=== PATIENT | female | born 1990 | race African-American/Black ===

== ENCOUNTER 2016-05-31 19:53 | Outpatient (CLI) | payer MEDICAID ==
[~2016-05-31] VITALS: Ht 154.9 cm; Wt 98.6 kg
[2016-05-31 20:35] VITALS: BP 121/74
[2016-05-31 20:55] VITALS: BP 126/67
[2016-06-25] MEDS ORDERED: HYDR-3702 PO (08:45)
[2016-07-02] MEDS ORDERED: MAGN400T39 PO (13:26)
== END 2016-05-31 20:55 | disposition home or self-care (01) ==
LOC: OBGOP 19:53 → OB 19:54 → OBGOP 20:55
PROVIDERS: ATTEND Obstetrics & Gynecology
DX: O42.913 Preterm premature rupture of membranes, unspecified as to length of time between rupture and onset of labor, third trimester (principal); Z3A.35 35 weeks gestation of pregnancy
CPT/HCPCS: 84112; G0463; 99202

== ENCOUNTER 2016-06-15 01:47 | Outpatient (CLI) | payer MEDICAID ==
[~2016-06-15] VITALS: Ht 154.9 cm; Wt 98.6 kg
[2016-06-15 02:25] VITALS: BP 126/83
[2016-06-15 02:30] VITALS: BP 126/83
== END 2016-06-15 03:55 | disposition admitted as inpatient to this hospital (09) ==
LOC: OB 01:47 → EUOP 01:47 → UNDOADMIN 02:07 → OB 02:07 → EUOP 02:21
PROVIDERS: ATTEND Obstetrics & Gynecology
DX: O47.1 False labor at or after 37 completed weeks of gestation (principal); Z3A.38 38 weeks gestation of pregnancy
CPT/HCPCS: 99202

== ENCOUNTER 2016-06-23 05:39 | Inpatient (IN) | payer MEDICAID ==
[2016-06-23] VITALS (15 sets, daily range): BP systolic 122–148; BP diastolic 63–99
[~2016-06-23] VITALS: Ht 152.4 cm; Wt 100.0 kg
[2016-06-23] MEDS ORDERED: OXYTOCIN INJ 20 UNIT in NS 1000ml 1,000 ML IV SCH (05:42)
[2016-06-23] MEDS ORDERED: ceFAZolin 2,000 MG in SODIUM CHLORIDE VIAL (PF) 20 ML IV SCH (05:45)
[2016-06-23] MEDS ORDERED: NALBUPHINE 10 MG/ML (NUBAIN) 1 ML AMP IV PRN ×2 (05:45)
[2016-06-23] MEDS ORDERED: diphenhydrAMINE 25 MG (BENADRYL) TABLET PO PRN (05:45)
[2016-06-23] MEDS ORDERED: oxyCODONE/ACETAMINOPHEN 5MG-325 MG (PERCOCET) TABLET PO PRN (05:45)
[2016-06-23] MEDS ORDERED: LANOLIN OINTMENT 28 GM TUBE TOP PRN (05:45)
[2016-06-23] MEDS ORDERED: POT BICARB/SOD BICARB/CIT AC (ALKA-SELTZER GOLD) 1 TABLET.EFF PO SCH (05:45)
[2016-06-23] MEDS ORDERED: METOCLOPRAMIDE 10 MG/2 ML (REGLAN) VIAL IV SCH (05:45)
[2016-06-23] MEDS ORDERED: M-M-R II (MEASLES,MUMPS,RUBELLA) VACCINE SC ONE (05:45)
[2016-06-23] MEDS ORDERED: diphenhydrAMINE 50 MG/ML INJ (BENADRYL) IV PRN (05:45)
[2016-06-23] MEDS ORDERED: diphenhydrAMINE 50 MG/ML INJ (BENADRYL) IM PRN (05:45)
[2016-06-23] MEDS ORDERED: diphenhydrAMINE 50 MG (BENADRYL) CAPSULE PO PRN (05:45)
[2016-06-23 06:22] LABS: MEAN CORPUSCULAR HEMOGLOBIN 27.3 PG (26.0-34.0); MEAN CORPUSCULAR HGB CONC 33.4 g/dL (31.0-37.0); WHITE BLOOD COUNT 8.19 10^3uL (4.0-11.0)
[2016-06-23 06:33] LABS: ANION GAP 11.2 MEQ/L (3-15)
[2016-06-23] MEDS ORDERED: LIDOCAINE PF 1% (XYLOCAINE) 2 ML VIAL INJ ONE ×2 (06:49→13:00)
[2016-06-23] MEDS ORDERED: OXYTOCIN 10 UNIT/ML (PITOCIN) 1 ML VIAL ONE ×2 (07:19→08:46)
[2016-06-23] MEDS ORDERED: morphine PF 0.5 MG/ML (DURAMORPH) 10 ML VIAL IV ONE (07:19)
[2016-06-23] MEDS ORDERED: ROPIVACAINE 1% 10 MG/ML (NAROPIN) 20 ML AMPUL ONE (07:20)
[2016-06-23] MEDS ORDERED: MIDAZOLAM 2 MG/2 ML (VERSED) VIAL ONE (08:39)
[2016-06-23 08:51] LABS: BILIRUBIN,URINE Negative (Negative); CLARITY,URINE Clear; COLOR,URINE Yellow; GLUCOSE, URINE (UA) Negative (Negative); LEUKOCYTE ESTERASE, URINE Negative (Negative); UROBILINOGEN,URINE 0.2 mg/dL (0.2-1.0)
[2016-06-23] MEDS: ONDANSETRON 2 MG/ML (Z0FRAN) 2 ML VIAL IV PRN ×2 (09:59→17:45)
[2016-06-23] MEDS: IBUPROFEN 600 MG (MOTRIN) TAB PO SCH ×2 (11:45→19:27)
--- NOTE | 2016-06-23 14:30 | NUR ---
Reji. Experienced dizziness and returned to laying position. Addendum: 06/23/16 at 2009 by Ludmila Thorne RN Amended: Links added.
[2016-06-23] MEDS ORDERED: SODIUM CHLORIDE FLUSH 10 ML ONE (20:54)
[2016-06-23] MEDS: DOCUSATE SODIUM 100 MG (COLACE) CAP PO SCH (21:30)
[2016-06-24] VITALS: BP 127/77
[2016-06-24] MEDS: IBUPROFEN 600 MG (MOTRIN) TAB PO SCH ×4 (02:40→20:45)
[2016-06-24 05:02] VITALS: BP 124/77
[2016-06-24 07:30] LABS: MEAN CORPUSCULAR HEMOGLOBIN 27.2 PG (26.0-34.0); MEAN CORPUSCULAR HGB CONC 32.8 g/dL (31.0-37.0); MEAN PLATELET VOLUME 11.4 FL (6.0-9.5); WHITE BLOOD COUNT 12.35 10^3uL (4.0-11.0)
[2016-06-24 08:00] VITALS: BP 135/78
[2016-06-24] MEDS: oxyCODONE/ACETAMINOPHEN 5MG-325 MG (PERCOCET) TABLET PO PRN ×4 (10:19→18:42)
[2016-06-24 20:09] VITALS: BP 118/66
[2016-06-24] MEDS: DOCUSATE SODIUM 100 MG (COLACE) CAP PO SCH (20:46)
[2016-06-25] MEDS: IBUPROFEN 600 MG (MOTRIN) TAB PO SCH (05:57)
[2016-06-25] MEDS: oxyCODONE/ACETAMINOPHEN 5MG-325 MG (PERCOCET) TABLET PO PRN (06:00)
[2016-06-25 09:00] VITALS: BP 128/74
--- NOTE | 2016-06-25 12:46 | NUR ---
1115 Pt discharged in good condition. Discharge teaching/instructions reviewed with pt who denies questions at this time. Advised her to call the OB dept should she have any future questions. Security bands collected from pt and baby. Pumped breast milk returned to pt from the refrigerator. 1145 Pt rode in wheelchair while carrying infant secured in infant car seat, accompanied by this RN, and several of the pt's family members, to the front entrance of the hospital. Baby, secured in infant car seat, was secured into the base unit of a family member's car along with this pt and left via private vehicle.
== END 2016-06-25 11:45 | disposition home or self-care (01) | DRG 766 ==
LOC: OB 05:39
PROVIDERS: ADMIT Obstetrics & Gynecology; ATTEND Obstetrics & Gynecology
PROC: 10D00Z1 Extraction of Products of Conception, Low, Open Approach (ICD-10-PCS; principal; 2016-06-23)
DX: O34.211 Maternal care for low transverse scar from previous cesarean delivery (principal); Z3A.39 39 weeks gestation of pregnancy; Z37.0 Single live birth
CPT/HCPCS: 36415; 59510; 80048; 81003; 85027; 85610; 85730; 86850; 86900; 86901; 94762

== ENCOUNTER 2016-07-02 12:07 | Emergency (ER) | payer MEDICAID ==
[~2016-07-02] VITALS: Ht 154.9 cm; Wt 75.0 kg
[2016-07-02] MEDS ORDERED: KETOROLAC 15 MG/ML (TORADOL) 1 ML VIAL IV ONE (12:15)
[2016-07-02 12:34] LABS: BASOPHILS % (AUTO) 0 % (0-2); EOSINOPHILS # (AUTO) 0.1 10^3uL; EOSINOPHILS % (AUTO) 1 % (0-4); LYMPHOCYTES # (AUTO) 2.2 X10^3; MEAN CORPUSCULAR HGB CONC 32.3 g/dL (31.0-37.0); MEAN CORPUSCULAR VOLUME 82 FL (80-100); MEAN PLATELET VOLUME 9.9 FL (6.0-9.5); MONOCYTES # (AUTO) 0.6 X10^3; MONOCYTES % (AUTO) 7 % (3-11); NEUTROPHILS # (AUTO) 6.4 X10^3; NEUTROPHILS % (AUTO) 68 % (51-67); PLATELET COUNT 281 10^3uL (150-450); WHITE BLOOD COUNT 9.39 10^3uL (4.0-11.0)
[2016-07-02 12:35] LABS: BILIRUBIN,URINE Negative (Negative); COLOR,URINE Yellow; GLUCOSE, URINE (UA) Negative (Negative); LEUKOCYTE ESTERASE ,URINE 2+ (Negative); PH,URINE 7.5 (5.0 - 8.0); UROBILINOGEN,URINE 0.2 mg/dL (0.2-1.0)
[2016-07-02 12:35] LABS: MEAN CORPUSCULAR HEMOGLOBIN 26.4 PG (26.0-34.0)
[2016-07-02 12:38] LABS: CLARITY,URINE Slightly Cloudy
[2016-07-02 12:42] LABS: RBC,URINE 20-50 /HPF; URINE CENTRIFUGED VOLUME 12 mL
[2016-07-02 12:45] LABS: ALBUMIN 4.1 g/dL (3.4-5.0); CALCULATED IONIZED CALCIUM 3.9 mg/dL (3.8-4.6); TOTAL PROTEIN 8.5 g/dL (6.4-8.5)
[2016-07-02] MEDS ORDERED: SODIUM CHLORIDE FLUSH 10 ML SYR IV PRN (12:45)
[2016-07-02] MEDS ORDERED: SODIUM CHLORIDE FLUSH 3 ML SYR IV ONE (12:45)
[2016-07-02 13:34] VITALS: BP 161/105
== END 2016-07-02 13:45 | disposition home or self-care (01) ==
LOC: EDUNIT# 12:07 → ED 12:09
DX: R51 Headache (principal)
CPT/HCPCS: 36415; 80053; 81003; 81015; 84550; 85025; 85610; 85730; 87077; 87088; 87186; 96374; 99283; J1885

== ENCOUNTER → 2016-07-02 | Outpatient (CLI) | payer MEDICAID | LOC: EMS 11:50 | PROVIDERS: ATTEND Emergency Medicine | DX: R51 Headache (principal) ==

== ENCOUNTER 2016-09-18 19:56 | Emergency (ER) | payer MEDICAID ==
[~2016-09-18] VITALS: Ht 152.4 cm; Wt 93.0 kg
[~2016-09-18 19:56] MED LIST: HYDR-3702 PO; MAGN400T39 PO
[2016-09-18 20:04] VITALS: BP 170/117
[2016-09-18] MEDS ORDERED: TRM50T PO (20:37)
[2016-09-18] MEDS ORDERED: AMOX500C5 PO (20:37)
== END 2016-09-18 20:41 | disposition home or self-care (01) ==
LOC: ED 19:57
DX: K08.89 Other specified disorders of teeth and supporting structures (principal)
CPT/HCPCS: 99282